=== PATIENT | male | born 1970 | race African-American/Black ===

== ENCOUNTER 2019-10-29 03:33 | Emergency (ER) | payer MEDICAID, OTHER ==
[~2019-10-29] VITALS: Ht 182.9 cm; Wt 81.6 kg
--- NOTE | 2019-10-29 03:40 | NUR ---
[employer] AND [employer] FOR [employer]. PT WAS PICKED UP FROM [facility] [place] FOR BEING AGITATED AND COMBATIVE. PT WAS PLACED IN BED 6 ON MONITOR, VSS. WILL CONT TO MONITOR ,
[2019-10-29] MEDS ORDERED: LORAZEPAM INJ 2 MG/ML VIAL ONE (03:42)
[2019-10-29] MEDS ORDERED: diphenhydrAMINE HCL 50 MG/ML VIAL ONE (03:42)
[2019-10-29] MEDS ORDERED: HALOPERIDOL LACTATE INJ 5 MG/ML VIAL ONE (03:47)
[2019-10-29] MEDS ORDERED: HALOPERIDOL LACTATE INJ 5 MG/ML VIAL IM ONE (04:00)
[2019-10-29] MEDS ORDERED: LORAZEPAM INJ 2 MG/ML VIAL IV ONE (04:00)
[2019-10-29] MEDS ORDERED: diphenhydrAMINE HCL 50 MG/ML VIAL IM ONE (04:00)
[2019-10-29 04:05] LABS: BASOPHILS # (AUTO) 0.1 /CMM (0.0-0.2); BASOPHILS % (AUTO) 0.7 % (0.0-2.0); EOSINOPHILS % (AUTO) 0.4 % (0.0-6.0); HEMATOCRIT 38 % (39-51); HEMOGLOBIN 12.8 g/dL (13.5-17.5); LYMPHOCYTES # (AUTO) 1.4 /CMM (0.8-4.8); LYMPHOCYTES % (AUTO) 16.8 % (20.0-44.0); MEAN CORPUSCULAR HGB CONC 34 g/dl (31.0-36.0); MEAN CORPUSCULAR VOLUME 95 fL (80-96); MONOCYTES # (AUTO) 0.7 /CMM (0.1-1.30); MONOCYTES % (AUTO) 9.2 % (2.0-12.0); NEUTROPHILS # (AUTO) 5.9 /CMM (1.8-8.9); NEUTROPHILS % (AUTO) 72.9 % (43.0-81.0); PLATELET COUNT (AUTO) 269 /CMM (150-450); RED BLOOD CELL COUNT(AUTO) 4.01 MIL/uL (4.5-6.0); WHITE BLOOD COUNT (AUTO) 8.1 K/uL (4.3-11.0)
--- NOTE | 2019-10-29 04:15 | NUR ---
PT CURRENTLY SITTING IN BED CALM AND QUIET. ON MONITORING W/ STABLE VS. DENIED SI/HI AT THIS TIME. MEDS ARE HELD FOR NOW AND DR. PITTS MADE AWARE. WILL CONT TO MONITOR ,
[2019-10-29 04:24] LABS: ALANINE AMINOTRANSFERASE 39 U/L (12-78); ALBUMIN 4.6 g/dL (3.4-5.0); ALCOHOL, BLOOD < 3 mg/dL (0-0); ALKALINE PHOSPHATASE 65 U/L (46-116); ASPARTATE AMINOTRANSFERASE 83 U/L (15-37); BILIRUBIN,DIRECT 0.3 mg/dL (0.0-0.2); BILIRUBIN,TOTAL 1.4 mg/dL (0.2-1.0); CALCIUM, SERUM 8.9 mg/dL (8.5-10.1); CARBON DIOXIDE 23 mmol/L (21-32); CHLORIDE 98 mmol/L (98-107); CREATININE 1.3 mg/dL (0.6-1.3); GLUCOSE 80 mg/dL (74-106); POTASSIUM 3.3 mmol/L (3.5-5.1); SODIUM SERUM 136 mmol/L (136-145); TOTAL PROTEIN, SERUM 8.4 g/dL (6.4-8.2); UREA NITROGEN, BLOOD 26 mg/dL (7-18)
[2019-10-29 04:42] LABS: ACETAMINOPHEN 0 ug/ml (10-30); SALICYLATE < 0.2 mg/dL (2.8-20.0)
[2019-10-29 05:08] LABS: APPEARANCE,URINE CLEAR (CLEAR); BILIRUBIN,URINE SMALL (NEGATIVE); BLOOD, URINE NEGATIVE Ery/uL (NEGATIVE); COLOR,URINE YELLOW (YELLOW); KETONES,URINE 15 (NEGATIVE); LEUKOCYTE ESTERASE ,URINE NEGATIVE (NEGATIVE); NITRITE, URINE NEGATIVE (NEGATIVE); PROTEIN,URINE NEGATIVE (NEGATIVE); UGLUCOSE NEGATIVE (NEGATIVE); UROBILINOGEN,URINE 0.2 EU/dL (0.2)
--- NOTE | 2019-10-29 05:19 | NUR ---
Patient is resting comfortably in bed with eyes closed. Easily aroused. VSS. WILL CONT TO MONITOR
[2019-10-29 05:21] LABS: WBC,URINE 0-2 /HPF (0-3)
[2019-10-29 05:45] LABS: BACTERIA,URINE Few /HPF (None Seen); SQUAMOUS EPITHELIAL CELL,UR Rare /HPF (None Seen)
--- NOTE | 2019-10-29 06:49 | NUR ---
PATIENT DENIES BEING HOMELESS. PATIENT STATES, "WHAT YA'LL GONNA DO, WANT ME TO CALL MY TEAM TO COME PICK ME UP AND TAKE ME BACK TO THEY [facility]?"
--- NOTE | 2019-10-29 06:49 | NUR ---
Patient discharged to home in stable condition. Written and verbal after care instructions given. Patient verbalizes understanding of instruction.
--- NOTE | 2019-10-29 06:50 | NUR ---
Note catracho in EDM - 10/29/19 at 0650 by MARGARITO Patient given written and verbal discharge instructions. Patient verbalizes understanding of instructions. Patient is ambulatory with steady gait. Refuses offer of custodial placement. Patient given list of available shelters in surrounding area.
[2019-10-29 06:51] VITALS: BP 122/76
== END 2019-10-29 06:52 | disposition home or self-care (01) ==
LOC: ER 03:35
DX: F15.10 Other stimulant abuse, uncomplicated (principal)
CPT/HCPCS: 36415; 80048; 80076; 80305; 80307; 80329; 81001; 85025; 99283; G0480; 81000-TC; J1200; J1630; J2060